=== PATIENT | female | born 1960 | race Caucasian/White ===

== ENCOUNTER → 2016-11-11 | Outpatient (CLI) | payer BC ==
[~2016-11-11] MED LIST: ANUSOL SUPP1 SUPP RC; ASPIRIN PO; BENTYL10 MG PO; CIPRO250 M1 PO; CLARITIN5 MG PO; DICYCLOMINE HCL20 MG PO; FLEXERIL PO; FLONASE ALLERG9.9 ML; LEVAQUIN PO; LOPRESSOR PO; LORTAB 5/500 TA1 TA2; LORTAB 7.5-5001 TAB PO; METRONIDAZOLE PO; MIRALAX255 GM PO; NEXIUM PO; PHENERGAN PO; PRILOSEC PO; PROCTO PAK TOP; PYRIDIUM100 MG PO; TOPROL XL PO; TYLENOL #3 PO; VIVELLE-DO.0375 MG/2 TOP; VIVELLE-DO1 PATCH.B1; [UNRECOGNIZED DRUG - OTHER] PO
--- NOTE | ~2016-11-11 | TH ---
Unit #: [id number] #: [id number] Patient: SCARLETT HURT [id number] [address] [address] [id number] O MR#: [id number] NAME: SCARLETT HURT : 1960 SEX: F STUDY DATE/TIME: 11/11/2016 UNIT: CN ROOM: STUDY DESCRIPTION: Stress nuclear Attending Physician: Anita Tobias M.D. Referring Physician: Anita Tobias M.D. Primary Care Physician: Anita Tobias M.D. CARDIOLOGY REPORT EXAM Stress nuclear. FINDINGS Result text under stress test. Please see this report for result text. Dictated by... Kirstin Pro/sari TD: 11/12/2016 06:49 JOB #: [id number] CARDIOLOGY REPORT Page 1 of 1 X Eric Dumont MD CARDIOLOGY REPORT
--- NOTE | ~2016-11-11 | ST ---
Unit #: [id number] #: [id number] Patient: SCARLETT HURT [id number] [address] [place], [place] [address] [id number] O MR#: [id number] NAME: SCARLETT HURT. : 1960 SEX: F STUDY DATE/TIME: 11/11/2016 UNIT: [facility] ROOM: STUDY DESCRIPTION: Stress nuclear/ECG combined Attending Physician: Anita Tobias M.D. Referring Physician: Anita Tobias M.D. Primary Care Physician: Anita Tobias M.D. CARDIOLOGY REPORT EXAM Stress nuclear study and ECG combined. INDICATIONS Chest pain. SUMMARY Patient exercised on a Bernardino protocol to maximal effort. The resting ECG is abnormal with 0.[address] depression, V4-V6, leads II, III, and aVF. With stress, there is additional 0.[address] depression in the leads which were abnormal at rest, but the ST depression is upsloping. Patient completed 4 minutes on a Bernardino protocol with heart rate increasing from 82 to 151 (92%) and blood pressure increasing, 129/59 to 140/80. Technetium 99 Cardiolite, 10.36 and 32.8 mCi, was injected at rest and stress, respectively. Appropriate views were obtained. FINDINGS The perfusion scan demonstrates intestinal artifact, which is fairly strong at rest, less with stress. Otherwise, there is anterior chest wall attenuation artifact and normal perfusion throughout the myocardium. Planar images demonstrate no significant patient motion either at rest or stress. There is no significant lung uptake or LV or RV enlargement. Gated perfusion wall motion analysis demonstrates normal wall motion throughout the myocardium with end-diastolic volume 76 mL, ejection fraction greater than 65%. Summed stress score is 0. IMPRESSION 1. Myocardial perfusion scan demonstrates no ischemia or infarction. 2. Severe deconditioning based on the patient's age. 3. Normal heart rate and blood pressure responses. 4. Normal stress ECG. 5. Normal LV function and LV size. Dictated by... Eric Dumont M.D. CAROLINE/sari TD: 11/12/2016 06:36 JOB #: [id number] Unit #: [id number] #: [id number] Patient: SCARLETT HURT CARDIOLOGY REPORT Page 1 of 1 X Eric Dumont MD CARDIOLOGY REPORT
--- NOTE | ~2016-11-11 | HM ---
Unit #: [id number] #: [id number] Patient: SCARLETT HURT [id number] [address] [address] [id number] O MR#: [id number] NAME: SCARLETT HURT : 1960 SEX: F STUDY DATE/TIME: 11/11/2016 UNIT: [facility] ROOM: STUDY DESCRIPTION: HOLTER MONITOR Attending Physician: Anita Tobias M.D. Referring Physician: Anita Tobias M.D. Primary Care Physician: Anita Tobias M.D. CARDIOLOGY REPORT EXAM Holter monitor. DATE APPLIED 11/11/2016 DATE SCANNED 11/16/[address] Anita Tobias READ BY Dr. Eric Dumont INDICATION Chest pain, palpitations. SUMMARY The patient was monitored for 24 hours. A total of 113,935 QRS complexes were analyzed. The rhythm was sinus. Average heart rate was 79 beats per minute, minimum heart rate 50 beats per minute, maximum heart rate 136 beats per minute at 11:30 a.m. The minimum heart rate occurred at approximately 4 p.m. There were no pauses. SUPRAVENTRICULAR ECTOPY: 28 isolated beats with one 5-beat run at 132 beats per minute at 7 a.m. Spontaneous in onset and offset. VENTRICULAR ECTOPY: 28 isolated beats, with no runs. SYMPTOMS: There were skipped beats while driving and drinking a carbonated drink. There were no dysrhythmias during this time. This occurred at 11:30 a.m. Another with palpitations getting ready for work at approximately 8 a.m. and 9 a.m., both showed sinus rhythm with no dysrhythmia. Heart rates ranged between 77 and 97 for all of these symptoms. IMPRESSION 1. Rare PVCs and PACs without symptoms. 2. Symptoms, without any dysrhythmia. 3. Normal study. Unit #: [id number] #: [id number] Patient: SCARLETT HURT Dictated by... Kirstin Pro/kiko TD: 11/18/2016 22:30 JOB #: [id number] CARDIOLOGY REPORT Page 1 of 1 X Eric Dumont MD MONITOR REPORT
== END | disposition home or self-care (01) ==
LOC: CNUC 07:52
DX: R07.89 Other chest pain (principal); R00.2 Palpitations
CPT/HCPCS: 78452; 93017; 93225; 93226; 93306; A9500